=== PATIENT | male | born 1995 | race Caucasian/White ===

== ENCOUNTER 2018-01-30 14:10 | Emergency (ER) | payer OTHER, BC ==
[2018-01-30 14:33] VITALS: BP 138/84; PULSE 89; TEMP 98.5; BMI 21.5
--- NOTE | 2018-01-30 14:33 | PDOC ---
Rapid Medical Evaluation Chief Complaint: Laceration Time Seen by Provider: 01/30/18 14:31 Medical Evaluation: Allergies Allergy/AdvReac Type Severity Reaction Status Date / Time No Known Allergies Allergy Verified 04/04/16 20:38 01/30/18 14:34 The patient presents with a chief complaint of: laceration I have performed a brief in-person evaluation of this patient. Pertinent physical exam findings: vss, stable I have ordered the following: na The patient will proceed to the ED for further evaluation.
--- NOTE | 2018-01-30 15:10 | PDOC ---
History of Present Illness - General Chief Complaint: Laceration Stated Complaint: INJURY ON THE JOB Time Seen by Provider: 01/30/18 14:31 - History of Present Illness Initial Comments: 22-year-old male presents for evaluation on his left thumb. He is up-to-date on tetanus free of comorbidities. The laceration occurred at work while using a razor blade. 01/30/18 15:07 Past History - Past Medical History Allergies/Adverse Reactions: Allergies Allergy/AdvReac Type Severity Reaction Status Date / Time No Known Allergies Allergy Verified 04/04/16 20:38 Home Medications: Ambulatory Orders NK [No Known Home Medication] 04/04/16 COPD: No - Immunization History Immunization Up to Date: Yes - Suicide/Smoking/Psychosocial Hx Smoking History: Never smoked Hx Alcohol Use: No Drug/Substance Use Hx: No Review of Systems - Review of Systems Integumentary: Yes: See HPI All Other Systems: Reviewed and Negative *Physical Exam - Vital Signs Last Vital Signs Temp Pulse Resp BP Pulse Ox 98.5 F 89 18 138/84 100 01/30/18 14:32 01/30/18 14:32 01/30/18 14:32 01/30/18 14:32 01/30/18 14:32 - Physical Exam Comments: There is a semicircular laceration at the left thumb on the volar aspect without any gross sensorimotor deficits. Capillary refill is less than 2 seconds. 01/30/18 15:07 Medical Decision Making - Medical Decision Making Aseptically a digital block was introduced with 5 mL of 1% lidocaine without epinephrine. The wound was explored to its base in a bloodless field no foreign body was identified. The wound was copiously irrigated with normal saline. 3 simple interrupted sutures using 5-0 nylon were placed. This was tolerated well. Dry sterile dressing was placed. 01/30/18 15:08 *DC/Admit/Observation/Transfer Diagnosis at time of Disposition: Laceration of thumb - Discharge Dispostion Disposition: HOME Condition at time of disposition: Stable Decision to Admit order: No - Referrals Referrals: Maximino Wood MD [Staff Physician] - - Patient Instructions Printed Discharge Instructions: DI for Laceration Repair Additional Instructions: Follow-up with hand surgery in 2-3 days for further evaluation treatment options. He may return to the emergency room or follow-up with hand surgery for suture removal. Sutures should be left in place for at least 10 days. Leave the dressing on that was applied and the emergency room for 48 hours. After 48 hours may remove the dressing and wash her hand with soap and water and leave the area open to air. You should cover the wound with a dry sterile dressing and wear a glove while working return to the emergency room should you its appearance any drainage swelling pain or redness in the area. Otherwise may take Tylenol and Motrin for pain as directed. - Post Discharge Activity
== END 2018-01-30 15:12 | disposition home or self-care (01) ==
LOC: JERFT 14:10
PROC: 0HQGXZZ Repair Left Hand Skin, External Approach (ICD-10-PCS; principal; 2018-01-30)
DX: S61.012A Laceration without foreign body of left thumb without damage to nail, initial encounter (principal); W27.8XXA Contact with other nonpowered hand tool, initial encounter; Y93.89 Activity, other specified; Y92.69 Other specified industrial and construction area as the place of occurrence of the external cause; Y99.0 Civilian activity done for income or pay
CPT/HCPCS: 99281-25